=== PATIENT | female | born 1985 | race African-American/Black ===

== ENCOUNTER 2017-02-22 10:53 | Emergency (ER) | payer SELFPAY ==
[~2017-02-22] VITALS: Ht 175.3 cm; Wt 118.0 kg
[~2017-02-22 10:53] MED LIST: BACTRIM; KEFLEX; VICODIN
[2017-02-22] MEDS ORDERED: KETOROLAC 30MG/ML VIAL IV STA (13:03)
[2017-02-22] MEDS ORDERED: SODIUM CHLORIDE 0.9% 1,000 ML IV ONE (13:03)
[2017-02-22 13:24] LABS: EOSINOPHILS % 2.1 % (0.0-5.0); HEMATOCRIT. 38.1 % (36.0-48.0); HEMOGLOBIN. 12.6 g/dL (12.0-16.0); LYMPHOCYTES % 25.5 % (20.0-50.0); MEAN CORPUSCULAR HEMOGLOBIN 31.5 pg (28.0-32.0); MEAN CORPUSCULAR VOLUME 94.9 fL (81.0-99.0); MEAN PLATELET VOLUME 8.5 fl (7.4-10.4); MONOCYTES % 5.1 % (2.0-8.0); NEUTROPHILS % 66.3 % (40.0-76.0); PLATELET 326 x1000/uL (130-400); RED BLOOD CELL COUNT 4.02 mill/uL (4.2-5.4); RED CELL DISTRIBUTION WIDTH 14.6 % (11.6-14.6)
[2017-02-22 13:32] LABS: PROTHROMBIN TIME 10.3 sec (9.4-11.6)
[2017-02-22 13:42] LABS: CARBON DIOXIDE 28 mEq/L (21-32); CHLORIDE 108 mEq/L (98-107); CREATINE KINASE MB FRACTION 0.7 ng/mL (0.5-3.6); TROPONIN I < 0.02 ng/mL (0.00-0.04)
[2017-02-22 14:20] LABS: CLARITY URINE CLEAR (CLEAR); COLOR URINE YELLOW (YELLOW); GLUCOSE URINE NEGATIVE (NEGATIVE); KETONES URINE NEGATIVE (NEGATIVE); LEUKOCYTE ESTERASE URINE 1+ (NEGATIVE); NITRITE URINE NEGATIVE (NEGATIVE); OCCULT BLOOD URINE NEGATIVE (NEGATIVE); PH URINE 5.5 (4.5-8.0); PROTEIN URINE NEGATIVE (NEGATIVE); SPECIFIC GRAVITY URINE 1.022 (1.005-1.030); UROBILINOGEN URINE 0.2 E.U./dL (0.2-1.0)
[2017-02-22 14:49] LABS: *AMPHETAMINES SCREEN URINE NEGATIVE (NEGATIVE); *BARBITURATES SCREEN URINE NEGATIVE (NEGATIVE); *BENZODIAZEPINES SCREEN URINE NEGATIVE (NEGATIVE); *COCAINE SCREEN URINE NEGATIVE (NEGATIVE); METHADONE URINE SCREEN NEGATIVE (NEGATIVE); OPIATES URINE SCREEN NEGATIVE (NEGATIVE); PHENCYCLIDINE URINE SCREEN NEGATIVE (NEGATIVE)
[2017-02-22 14:54] LABS: CANNABINOID URINE SCREEN PRESUMTIVE POSITIVE (NEGATIVE)
[2017-02-22] MEDS ORDERED: METOCLOPRAMIDE HCL 10MG/2ML VIAL IV ONE (15:00)
[2017-02-22] MEDS ORDERED: DIPHENHYDRAMINE 50MG/ML VIAL IV ONE (15:00)
[2017-02-22 17:30] VITALS: BP 129/79
== END 2017-02-22 18:16 | disposition home or self-care (01) ==
LOC: ER 15:56
DX: N39.0 Urinary tract infection, site not specified (principal); F17.210 Nicotine dependence, cigarettes, uncomplicated; F12.10 Cannabis abuse, uncomplicated; Z98.890 Other specified postprocedural states
CPT/HCPCS: 36415; 70450; 74022; 80053; 80305; 81001; 81025; 82553; 84484; 85025; 85610; 96374; 96375; 99285; J1200; J1885; J2765; J7030; Z7610

== ENCOUNTER 2019-01-26 08:42 | Emergency (ER) | payer MEDICAID ==
[~2019-01-26] VITALS: Ht 175.3 cm; Wt 119.0 kg
[2019-01-26 09:53] LABS: BASOPHILS % 1.1 % (0.0-2.0); EOSINOPHILS % 1.7 % (0.0-5.0); HEMATOCRIT. 38.9 % (36.0-48.0); HEMOGLOBIN. 13.3 g/dL (12.0-16.0); LYMPHOCYTES % 31.5 % (20.0-50.0); MEAN CORPUSCULAR HEMOGLOBIN 32.5 pg (28.0-32.0); MEAN CORPUSCULAR VOLUME 95.2 fL (81.0-99.0); MEAN PLATELET VOLUME 8.6 fl (7.4-10.4); MONOCYTES % 4.7 % (2.0-8.0); PLATELET 330 x1000/uL (130-400); RED BLOOD CELL COUNT 4.09 mill/uL (4.2-5.4); RED CELL DISTRIBUTION WIDTH 14.4 % (11.6-14.6)
[2019-01-26 10:02] LABS: CHLORIDE 109 mEq/L (98-107)
[2019-01-26] MEDS ORDERED: OXYCODONE HCL/ACETAMINOPHEN 5/325MG TABLET PO ONE (10:45)
[2019-01-26 11:47] VITALS: BP 140/86
== END 2019-01-26 11:56 | disposition home or self-care (01) ==
LOC: ER 08:42
DX: I10 Essential (primary) hypertension (principal); M79.18 Myalgia, other site; F12.10 Cannabis abuse, uncomplicated; F17.210 Nicotine dependence, cigarettes, uncomplicated; Z98.890 Other specified postprocedural states
CPT/HCPCS: 36415; 71045; 81025; 83880; 84484; 93005; 99284

== ENCOUNTER 2023-03-06 13:21 | Emergency (ER) | payer BC, MEDICAID ==
[~2023-03-06] VITALS: Ht 175.3 cm; Wt 118.0 kg
[~2023-03-06 13:21] MED LIST changes: +CLIN30SO TP; +TETR-65 MT
[2023-03-06 13:30] VITALS: BP 137/77; PULSE 88; RESP 16; TEMP 98.9; O2SAT 100
[2023-03-06 14:44] LABS: CLARITY URINE CLEAR (CLEAR); COLOR URINE YELLOW (YELLOW); GLUCOSE URINE NEGATIVE (NEGATIVE); KETONES URINE NEGATIVE (NEGATIVE); LEUKOCYTE ESTERASE URINE 1+ (NEGATIVE); NITRITE URINE NEGATIVE (NEGATIVE); OCCULT BLOOD URINE NEGATIVE (NEGATIVE); PROTEIN URINE NEGATIVE (NEGATIVE); SPECIFIC GRAVITY URINE 1.027 (1.005-1.030)
[2023-03-06 15:05] LABS: SQUAMOUS EPITHELIAL CELL URINE 3+ /lpf (RARE/1+)
[2023-03-06 15:07] LABS: BACTERIA URINE 1+; RBC URINE 0-2 /hpf (0-2); WBC URINE 15-25 /hpf (0-2); YEAST URINE NONE SEEN
[2023-03-06] MEDS ORDERED: NITR-87 MT ×2 (16:02→16:41)
== END 2023-03-06 16:35 | disposition home or self-care (01) ==
LOC: ER 13:33
DX: J02.9 Acute pharyngitis, unspecified (principal); N39.0 Urinary tract infection, site not specified; F12.10 Cannabis abuse, uncomplicated; Z98.890 Other specified postprocedural states; Z79.899 Other long term (current) drug therapy
CPT/HCPCS: 81003; 81025; 87070; 87430; 99283

== ENCOUNTER 2023-10-17 08:35 | Emergency (ER) | payer BC, MEDICAID ==
[~2023-10-17] VITALS: Ht 175.3 cm; Wt 129.0 kg
[~2023-10-17 08:35] MED LIST changes: +NITR-87 MT
[2023-10-17 08:49] VITALS: O2SAT 98
[2023-10-17] MEDS: SODIUM CHLORIDE 0.9% 1,000 ML IV ONE (11:15)
[2023-10-17 11:32] LABS: BASOPHILS % 1.2 % (0.0-2.0); EOSINOPHILS % 1.7 % (0.0-5.0); HEMATOCRIT. 35.6 % (36.0-48.0); HEMOGLOBIN. 11.8 g/dL (12.0-16.0); LYMPHOCYTES % 34.5 % (20.0-50.0); MEAN CORPUSCULAR HEMOGLOBIN 27.9 pg (28.0-32.0); MEAN CORPUSCULAR HGB CONC 33.1 g/dL (31.0-37.0); MEAN CORPUSCULAR VOLUME 84.4 fL (81.0-99.0); MEAN PLATELET VOLUME 8.2 fl (7.4-10.4); NEUTROPHILS % 57.6 % (40.0-76.0); PLATELET 506 x1000/uL (130-400); RED BLOOD CELL COUNT 4.21 mill/uL (4.2-5.4); RED CELL DISTRIBUTION WIDTH 17.9 % (11.6-14.6); WHITE BLOOD COUNT 9.9 x1000/uL (4.5-11.0)
[2023-10-17 11:35] LABS: CHLORIDE 107 mEq/L (98-107); POTASSIUM 3.8 mEq/L (3.5-5.1); SODIUM 139 mEq/L (136-145)
[2023-10-17 11:36] LABS: CALCIUM 9.1 mg/dL (8.7-10.4); CARBON DIOXIDE 27 mEq/L (21-32)
[2023-10-17 11:41] LABS: CREATININE 0.8 mg/dL (0.6-1.0); GLUCOSE 87 mg/dL (70-105); UREA NITROGEN BLOOD 12 mg/dL (9-23)
[2023-10-17] MEDS: DIPHENHYDRAMINE 50MG/ML VIAL IV ONE (11:55)
[2023-10-17] MEDS: KETOROLAC 15MG/ML VIAL IV ONE (11:56)
[2023-10-17] MEDS: METOCLOPRAMIDE HCL 10MG/2ML VIAL IV ONE (11:56)
[2023-10-17] MEDS ORDERED: IOHEXOL-350 100 ML BOTTLE ONE (13:06)
[2023-10-17] MEDS ORDERED: IBUP-2028 MT (13:51)
[2023-10-17] MEDS ORDERED: ACET-2708 MT (13:51)
[2023-10-17 14:00] VITALS: BP 129/88; PULSE 90; RESP 7; TEMP 98.2
== END 2023-10-17 14:16 | disposition home or self-care (01) ==
LOC: ER 08:35
DX: R51.9 Headache, unspecified (principal); F12.10 Cannabis abuse, uncomplicated; Z79.899 Other long term (current) drug therapy; Z98.890 Other specified postprocedural states
CPT/HCPCS: 80048; 81025; 85025; 36415; 70496; 96361; 96374; 96375; 99285; Q9967; J1200; J1885; J2765; J7030; Z7610